=== PATIENT | male | born 1980 | race Caucasian/White ===

== ENCOUNTER 2020-11-05 03:08 | Emergency (ER) | payer OTHER ==
[2020-11-05 03:32] LABS: EOSINOPHIL 2.2 % (0-5); HCT 43.6 % (42.0-52.0); HGB 14.9 g/dl (13.2-18.0); LYMPHOCYTE 29.6 % (15-48); MCH 30.8 pg (25.0-31.0); MCHC 34.2 g/dL (32.0-36.0); MCV 90.3 fL (78.0-100.0); MONOCYTE 5.7 % (0-12); MPV 10.3 fL (6.0-9.5); NEUTROPHIL 61.3 % (41-80); NRBC 0; PLT 222 K/uL (150-400); RBC 4.83 M/uL (4.70-6.00); RDW 12.3 % (11.5-14.0); WBC 8.9 K/uL (4.0-10.5)
[2020-11-05 03:43] LABS: INR 1.02 (0.9-1.2); PROTHROMBIN TIME 12.8 SECONDS (11.8-13.4); PTT 26.9 SECONDS (24.4-34.7)
[2020-11-05 03:51] LABS: ALBUMIN 4.2 g/dL (3.4-5.0); BILIRUBIN - TOTAL 0.8 mg/dL (0.2-1.0); CREATININE 0.92 mg/dL (0.67-1.17); GLOBULIN (CALCULATION) 3.6 g/dL; POTASSIUM 3.6 mmol/L (3.5-5.1); TOTAL PROTEIN 7.8 g/dL (6.4-8.2)
[2020-11-05] MEDS ORDERED: ZPAK PO (07:31)
== END 2020-11-05 07:45 | disposition home or self-care (01) ==
LOC: FER 03:08
PROVIDERS: Internal Medicine
DX: J40 Bronchitis, not specified as acute or chronic (principal); R55 Syncope and collapse; M54.9 Dorsalgia, unspecified; I10 Essential (primary) hypertension; F17.210 Nicotine dependence, cigarettes, uncomplicated; Z98.890 Other specified postprocedural states; Z88.0 Allergy status to penicillin; Z79.899 Other long term (current) drug therapy
CPT/HCPCS: 36415; 71045; 71275; 80053; 84484; 85025; 85610; 85730; 93005; Q9967